=== PATIENT | female | born 1990 | race Caucasian/White ===

== ENCOUNTER → 2017-11-22 16:26 | Outpatient (CLI) | payer OTHER, MEDICAID, SELFPAY ==
[2017-11-22 17:40] LABS: Add Manual Diff / Slide Review NO; Basophils Percent Auto 0.9 % (0-2); Eosinophils Percent Auto 0.7 % (2-4); Hematocrit 40.9 % (36-46); Hemoglobin 14.1 g/dL (12.0-16.0); Lymphocytes Percent Auto 31.5 % (25-40); Mean Corpuscular HGB Conc 34.5 % (30-36); Mean Corpuscular Hemoglobin 31.1 PG (26-34); Mean Corpuscular Volume 90.2 fL (80-100); Monocytes Percent Auto 5.7 % (3-14); Neutrophils Absolute Auto 3200 /uL (3000-5900); Neutrophils Percent Auto 61.2 % (50-75); Platelet Count 277 X10^3/uL (150-400); Red Blood Cell Count 4.53 X10^6/uL (4.0-5.2); Red Cell Distribution Width 12.8 % (11.6-14.8); White Blood Cell Count 5.2 X10^3/uL (4.5-11.0)
[2017-11-22 18:26] LABS: Vitamin D 25 Hydroxy (D3) 36.9 ng/mL (30.0-100.0)
[2017-11-22 18:36] LABS: TSH w/ Reflex to FT4 1.39 uIU/mL (0.47-4.68)
[2017-11-22 18:52] LABS: Vitamin B12 995 pg/mL (239-931)
== END ==
PROVIDERS: Family Provider Family Medicine; PCP Family Medicine; Visit Provider Family Medicine
DX: R53.82 Chronic fatigue, unspecified (principal)
CPT/HCPCS: 36415; 82306; 82607; 84443; 85025

== ENCOUNTER 2021-07-05 02:43 | Emergency (ER) | payer OTHER, MEDICAID, SELFPAY ==
[2021-07-05 02:53] VITALS: BP 130/84; PULSE 98; RESP 19; TEMP 37.2; O2SAT 97; BMI 29.5
--- NOTE | 2021-07-05 02:59 | DI.RAD.S_ITS ---
PROCEDURE: XR CHEST 1V INDICATIONS: COVID POS, short of breath TECHNIQUE: One view of the chest was acquired. COMPARISON: None. FINDINGS: Surgical changes and devices: None. Lungs and pleura: Generalized bilateral interstitial infiltrate can be seen. No pleural effusions or pneumothorax. Mediastinum: Mediastinal contours appear normal. Heart size is normal. Bones and chest wall: No suspicious bony lesions. Overlying soft tissues appear unremarkable. IMPRESSION: Patchy bilateral interstitial infiltrates are seen, which are consistent with the known clinical history of COVID pneumonia. Note: No significant discrepancy from the preliminary report. Dictated by: Ted Parks M.D. on 07/05/2021 at 7:44 Approved by: Ted Parks M.D. on 07/05/2021 at 7:44
--- NOTE | 2021-07-05 03:24 | ED_ITS ---
HPI - URI/Sore Throat General Chief Complaint: Upper Respiratory Symptoms Stated Complaint: covid+/sob/cough/body aches x8 days Time Seen by Provider: 07/05/21 03:17 Source: patient Mode of arrival: Ambulatory History of Present Illness HPI Narrative: 31 year old Female with history of ADHD who presents with known COVID. She was diagnosed about 8 days ago she is vaccinated x2. She continues to have cough shortness of breath and body aches. She has many friends in the medical profession who recommended that she come get a chest x-ray. At today she felt like she could not breathe. At currently speaking without any difficulty and O2 of 97%. Related Data Previous Rx's Medication Instructions Recorded valacyclovir 500 mg tablet 500 mg PO BID #30 tab 07/10/18 dextroamphetamine-amphetamine 5 mg 5 mg PO DAILY #30 tab 08/11/20 tablet dextroamphetamine-amphetamine 5 mg 5 mg PO DAILY #30 tab 08/11/20 tablet dextroamphetamine-amphetamine 5 mg 5 mg PO DAILY #30 tab 08/11/20 tablet dextroamphetamine-amphetamine ER 1 cap PO QAM #30 cap 08/11/20 20 mg 24hr capsule,extend release dextroamphetamine-amphetamine ER 1 cap PO QAM #30 cap 08/11/20 20 mg 24hr capsule,extend release dextroamphetamine-amphetamine ER 20 mg PO QDAY #30 cap 08/11/20 20 mg 24hr capsule,extend release Allergies Allergy/AdvReac Type Severity Reaction Status Date / Time milk [MILK] Allergy Unknown Verified 02/14/21 08:53 Review of Systems Review of Systems Narrative: GENERAL: Denies chills, fatigue, malaise, fever, sweats, travel HEENT: Denies sinus pain, ear pain, sore throat, difficulty swallowing, neck pain RESPIRATORY: See HPI CARDIOVASCULAR: Denies chest pain, palpitations, orthopnea, edema GASTROINTESTINAL: Denies nausea, vomiting, abdominal pain, diarrhea, constipation, melena. : Denies dysuria, frequency, incontinence, hematuria, urinary retention, flank pain. MUSCULOSKELETAL: Denies weakness, joint pain, or bony pain SKIN: No rash, no erythema, no pruritus NEUROLOGIC: Denies weakness, dizziness, headache, numbness, change in speech, confusion PSYCHIATRIC: No concerning psychosocial issues. 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 seatbelt use: always helmet use: Yes water heater temp set < 120 deg: Yes working smoke detector in home: Yes fire extinguisher in home: Yes carbon monox detector in home: No firearms in home: Yes firearms unloaded and locked: Yes Smoking Status: Never smoker alcohol intake: current substance use type: does not use during the past year weight has: increased > 10 lbs well-balanced diet: daily or most days daily servings fruits/ve-4 caffeine: Yes (A lot of caffeine) eating out: 1-3 times/week Type(s) of exercise: other frequency: 3-4 times per week Smoking Status: Never smoker Alcohol type: wine Substance Use Type: does not use Exam Initial Vital Signs Initial Vital Signs: Vital Signs Temperature 98.9 F 07/05/21 02:53 Pulse Rate 98 H 07/05/21 02:53 Respiratory Rate 19 07/05/21 02:53 Blood Pressure 130/84 07/05/21 02:53 Pulse Oximetry 97 07/05/21 02:53 GENERAL: Alert this 31-year-old female appears to not feel well in no acute distress. HEENT: Head atraumatic,EOMI, pupils reactive, face symmetric, moist mucous membranes CARDIOVASCULAR: Regular rate and rhythm without murmurs, rubs or gallops. RESPIRATORY: Breath sounds equal bilaterally, no wheezes rales or rhonchi. EXTREMITIES: Normal range of motion, no clubbing or edema. Neurovascularly intact NEUROLOGICAL: Alert and oriented x4. SKIN: Warm, dry, no laceration, no petechiae, no rashes or lesions. Course Orders Ordered: ED Orders 07/05/21 02:59 XR chest 1V Stat 07/05/21 03:07 COVID19 -Nasal swab/Pre-Proc Stat Vital Signs Vital signs: Vital Signs - 8 hr 07/05/21 02:53 Temperature 98.9 F Pulse Rate 98 H Respiratory Rate 19 Blood Pressure 130/84 Pulse Oximetry 97 MDM - URI/Sore Throat Lab Data Labs: Lab Results 07/05/21 Range/Units 03:07 SARS-CoV-2 (PCR) Positive H (Negative) Imaging Data Chest x-ray: Radiologist's Impression: Hazy bilateral opacities compatible with pneumonia MDM Narrative Medical decision making narrative: Patient is not hypoxic she is speaking in full sentences she is vaccinated x2. Discussion with her of home management including home oxygen monitoring in when to return to ED Discharge Plan Departure Patient Disposition: Home Clinical Impression: COVID-19 Instructions: DI for COVID-19 (Suspected or Confirmed ) Activity Restrictions/Additional Instructions: *You have been diagnosed with COVID-19 *What to do: At this time please continue to monitor at home. He may continue to get worse before you get better. Monitor oxygen, if oxygen is below 91% please return to the emergency department. Stay hydrated.. *Continue to take medications as directed Tylenol 1000 mg every 6 hours if needed for [id number] pain Motrin 800 mg every 8 hours if needed for [id number] *Follow up with your primary care provider in 2-3 days or call [phone] *Return to ER if you should have increasing shortness of breath, oxygen less than 91% for more than 1 hour, worsening or concerning symptoms Prescriptions: No Action dextroamphetamine-amphetamine 20 mg capsule,extended release 24hr 20 mg PO QDAY Qty: 30 0RF dextroamphetamine-amphetamine 20 mg capsule,extended release 24hr 1 cap PO QAM Qty: 30 0RF dextroamphetamine-amphetamine 20 mg capsule,extended release 24hr 1 cap PO QAM Qty: 30 0RF dextroamphetamine-amphetamine 5 mg tablet 5 mg PO DAILY Qty: 30 0RF dextroamphetamine-amphetamine 5 mg tablet 5 mg PO DAILY Qty: 30 0RF dextroamphetamine-amphetamine 5 mg tablet 5 mg PO DAILY Qty: 30 0RF valacyclovir 500 mg tablet 500 mg PO BID Qty: 30 2RF Referrals: Negin Napier MD [Primary Care Provider] -
[2021-07-05 03:31] LABS: COVID19 -Nasal RAPID POSITIVE (Negative)
== END 2021-07-05 03:47 | disposition home or self-care (01) ==
PROVIDERS: Emergency Provider Emergency Medicine; Family Provider Family Medicine; PCP Family Medicine
DX: U07.1 COVID-19 (principal)
CPT/HCPCS: 71045; 87635; 99281; 99283; C9803

== ENCOUNTER → 2022-01-27 10:24 | Outpatient (CLI) | payer OTHER, MEDICAID, SELFPAY ==
[2022-01-27 13:26] LABS: TSH w/ Reflex to FT4 1.81 uIU/mL (0.47-4.68)
[2022-01-27 13:45] LABS: Vitamin B12 467 pg/mL (239-931)
== END ==
PROVIDERS: Family Provider Family Medicine; PCP Family Medicine; Referring Provider Family Medicine; Visit Provider Family Medicine
DX: R53.83 Other fatigue (principal); R63.5 Abnormal weight gain
CPT/HCPCS: 36415; 82306; 82607; 84443

== ENCOUNTER → 2022-10-10 09:29 | Outpatient (CLI) | payer OTHER, MEDICAID, SELFPAY | PROVIDERS: Family Provider Family Medicine; PCP Family Medicine; Visit Provider Family Medicine | DX: J02.9 Acute pharyngitis, unspecified (principal) | CPT/HCPCS: 87070; 87880 ==

== ENCOUNTER → 2023-04-18 11:38 | Outpatient (CLI) | payer OTHER, MEDICAID, SELFPAY ==
--- NOTE | 2023-04-18 11:42 | DI.RAD.S_ITS ---
PROCEDURE: XR HAND RT MIN 3V INDICATIONS: bilateral finger pain TECHNIQUE: 3 views of the hand(s) acquired. COMPARISON: None. FINDINGS: Bones: No fractures or dislocations. Tiny corticated ossific density at the radial base of the 3rd proximal phalanx likely represents an accessory ossicle or sequela of remote trauma. Carpal bones are normally aligned. Joint spaces are maintained. No suspicious bony lesions. Soft tissues: No suspicious soft tissue calcifications. IMPRESSION: 1. No acute bony abnormality. 2. Joint spaces are maintained. Dictated by: Esau Marshall M.D. on 04/18/2023 at 13:40 Approved by: Esau Marshall M.D. on 04/18/2023 at 13:41
--- NOTE | 2023-04-18 11:42 | DI.RAD.S_ITS ---
PROCEDURE: XR HAND LT MIN 3V INDICATIONS: bilateral finger pain TECHNIQUE: 3 views of the hand(s) acquired. COMPARISON: None. FINDINGS: Bones: No fractures or dislocations. Tiny corticated ossific density at the radial base of the 3rd proximal phalanx likely represents an accessory ossicle or sequela of remote trauma. Carpal bones are normally aligned. Joint spaces are maintained. No suspicious bony lesions. Soft tissues: No suspicious soft tissue calcifications. IMPRESSION: 1. No acute bony abnormality. 2. Joint spaces are maintained. Dictated by: Esau Marshall M.D. on 04/18/2023 at 13:42 Approved by: Esau Marshall M.D. on 04/18/2023 at 13:42
== END ==
PROVIDERS: Family Provider Family Medicine; PCP Family Medicine; Referring Provider Family Medicine; Visit Provider Family Medicine
DX: M79.645 Pain in left finger(s) (principal); M79.644 Pain in right finger(s)
CPT/HCPCS: 73130

== ENCOUNTER 2023-10-30 06:27 | Emergency (ER) | payer OTHER, MEDICAID, SELFPAY ==
[2023-10-30 06:36] VITALS: BP 136/74; PULSE 88; RESP 18; TEMP 36.4; O2SAT 98; BMI 56.9
--- NOTE | 2023-10-30 06:46 | ED_ITS ---
HPI - SOB/Dyspnea <Luz Valdez DO - Last Filed: 10/30/23 22:32> General Chief Complaint: Shortness of Breath/Dyspnea Stated Complaint: trouble breathing Time Seen by Provider: 10/30/23 06:40 Source: patient Mode of arrival: Ambulatory History of Present Illness HPI Narrative: Patient is a healthy 33-year-old female who presents today with cough and sore throat. She reports that kids have been sick home. She feels like she is phlegm in the back of her throat. No significant shortness of breath fever or chills. But she wants to make sure she does not have pneumonia. Denies all other symptoms. Reports that her throat was hurting but now it feels a better Related Data Previous Rx's Medication Instructions Recorded dextroamphetamine-amphetamine 5 mg 5 mg PO DAILY #30 tabs 08/11/20 tablet dextroamphetamine-amphetamine 5 mg 5 mg PO DAILY #30 tabs 02/19/22 tablet valacyclovir 500 mg tablet 500 mg PO BID #30 tabs 07/28/22 fluconazole 150 mg tablet 150 mg PO DAILY #1 tab 10/10/22 (Diflucan) dextroamphetamine-amphetamine 5 mg 5 mg PO BID #60 tabs 05/17/23 tablet benzonatate 200 mg capsule 200 mg PO BID-TID PRN cough #30 10/30/23 caps Allergies Allergy/AdvReac Type Severity Reaction Status Date / Time milk [MILK] Allergy Unknown Verified 10/30/23 16:23 Review of Systems <Cris Maxwell MD - Last Filed: 10/30/23 07:24> Review of Systems Narrative: see HPI Patient History <Luz Valdez DO - Last Filed: 10/30/23 22:32> Medical History ADHD (attention deficit hyperactivity disorder) Anemia (~2015) Surgical History Anesthesia History of breast augmentation (2013) History of egg donation (2014) History of egg donation (2015) Social History number of children: 1 household members: children pets and animals: Yes education level: college other: 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 seatbelt use: always helmet use: Yes water heater temp set < 120 deg: Yes working smoke detector in home: Yes fire extinguisher in home: Yes carbon monox detector in home: No firearms in home: Yes firearms unloaded and locked: Yes Smoking Status: Never smoker alcohol intake: current substance use type: does not use during the past year weight has: increased > 10 lbs well-balanced diet: daily or most days daily servings fruits/ve-4 caffeine: Yes (A lot of caffeine) eating out: 1-3 times/week Type(s) of exercise: other frequency: 3-4 times per week Smoking Status: Never smoker alcohol intake frequency: holidays/special occasions only Alcohol type: wine Substance Use Type: does not use Exam <Luz Valdez DO - Last Filed: 10/30/23 22:32> Initial Vital Signs Initial Vital Signs: Vital Signs Temperature 97.6 F 10/30/23 06:36 Pulse Rate 88 10/30/23 06:36 Respiratory Rate 18 10/30/23 06:36 Blood Pressure 136/74 10/30/23 06:36 Pulse Oximetry 98 10/30/23 06:36 Oxygen Delivery Method Room Air 10/30/23 06:36 GENERAL: Well-appearing 33-year-old female HEENT: Head atraumatic,EOMI, pupils reactive, face symmetric, [moist] mucous membranes CARDIOVASCULAR: Regular rate and rhythm without murmurs, rubs or gallops. RESPIRATORY: Breath sounds equal bilaterally, no wheezes rales or rhonchi. ABDOMEN: Soft, nontender. Normoactive bowel sounds all 4 quadrants. No guarding or rebound. EXTREMITIES: Normal range of motion, no clubbing or edema. Neurovascularly intact NEUROLOGICAL: Alert and oriented x4.Normal gait and speech. Cranial nerves II through XII grossly intact. SKIN: Warm, dry, no laceration, no petechiae, no rashes or lesions. <Cris Maxwell MD - Last Filed: 10/30/23 07:24> Initial Vital Signs Initial Vital Signs: Vital Signs Temperature 97.6 F 10/30/23 06:36 Pulse Rate 88 10/30/23 06:36 Respiratory Rate 18 10/30/23 06:36 Blood Pressure 136/74 10/30/23 06:36 Pulse Oximetry 98 10/30/23 06:36 Oxygen Delivery Method Room Air 10/30/23 06:36 Course <Luz Valdez DO - Last Filed: 10/30/23 22:32> Orders Ordered: ED Orders 10/30/23 06:47 Chest [XR chest 2V] Stat Vital Signs Vital signs: Vital Signs - 8 hr 10/30/23 06:36 Temperature 97.6 F Pulse Rate 88 Respiratory Rate 18 Blood Pressure 136/74 Pulse Oximetry 98 Oxygen Delivery Method Room Air <Cris Maxwell MD - Last Filed: 10/30/23 07:24> Orders Ordered: ED Orders 10/30/23 06:47 Chest [XR chest 2V] Stat Vital Signs Vital signs: Vital Signs - 8 hr 10/30/23 06:36 Temperature 97.6 F Pulse Rate 88 Respiratory Rate 18 Blood Pressure 136/74 Pulse Oximetry 98 Oxygen Delivery Method Room Air MDM - SOB/Dyspnea <Luz Valdez DO - Last Filed: 10/30/23 22:32> [facility] Narrative Medical decision making narrative: Patient 33-year-old female well-appearing presents today with upper respiratory like symptoms. She is concern for pneumonia. She has no respiratory distress vitals are stable. X-ray is ordered and signed out to Dr. Maxwell. Several days of upper respiratory symptoms. Lungs are clear to auscultation bilaterally, afebrile, saturating well on room air, chest x-ray negative for any concerning findings. Patient counseled on negative chest x-ray, recommended supportive measures including [id number] cough and cold medications and Mucinex. Tamara Brown sent to pharmacy of choice. <Cris Maxwell MD - Last Filed: 10/30/23 07:24> Differential Diagnosis Differential diagnosis: Likely community acquired pneumonia, asthma with exacerbation and other (viral syndrome) [facility] Narrative Medical decision making narrative: Several days of upper respiratory symptoms. Lungs are clear to auscultation bilaterally, afebrile, saturating well on room air, chest x-ray negative for any concerning findings. Patient counseled on negative chest x-ray, recommended supportive measures including [id number] cough and cold medications and Mucinex. Tessalon Perles sent to pharmacy of choice. Discharge Plan Departure Patient Disposition: Home Clinical Impression: Upper respiratory infection Instructions: DI for Viral Upper Respiratory Infection -- Adult Activity Restrictions/Additional Instructions: Your chest x-ray was negative for any signs of pneumonia and your lungs are clear when I listen to them. Use [id number] cough and cold medications along with the prescribed medications for your cough. You may take decongestants such as Mucinex to help loosen secretions. Prescriptions: New benzonatate 200 mg capsule 200 mg PO BID-TID PRN (Reason: cough) Qty: 30 0RF No Action fluconazole [Diflucan] 150 mg tablet 150 mg PO DAILY Qty: 1 0RF dextroamphetamine-amphetamine 5 mg tablet 5 mg PO DAILY Qty: 30 0RF valacyclovir 500 mg tablet 500 mg PO BID Qty: 30 2RF dextroamphetamine-amphetamine 5 mg tablet 5 mg PO BID Qty: 60 0RF dextroamphetamine-amphetamine 5 mg tablet 5 mg PO DAILY Qty: 30 0RF Referrals: Negin Napier MD [Primary Care Provider] - Stand Alone Forms: Patient Portal/API
--- NOTE | 2023-10-30 06:47 | DI.RAD.S_ITS ---
PROCEDURE: XR CHEST 2V INDICATIONS: cough TECHNIQUE: 2 views of the chest were acquired. COMPARISON: [facility], CR, XR CHEST 1V, 07/05/2021, 3:04. FINDINGS: Surgical changes and devices: None. Lungs and pleura: Lungs are clear. No pleural effusions or pneumothorax. Mediastinum: Mediastinal contours are normal. Heart size is normal. Bones and chest wall: No suspicious bony abnormalities. Soft tissues appear unremarkable. IMPRESSION: No acute cardiopulmonary abnormality is seen. Dictated by: Leighann Mak M.D. on 10/30/2023 at 7:53 Approved by: Leighann Mak M.D. on 10/30/2023 at 7:54
--- NOTE | 2023-10-30 06:56 | PC.NURSE ---
Pt ambulatory to Xray. No signs of respiratory distress.
== END 2023-10-30 07:27 | disposition home or self-care (01) ==
PROVIDERS: Emergency Provider Emergency Medicine; Family Provider Family Medicine; PCP Family Medicine
DX: J06.9 Acute upper respiratory infection, unspecified (principal); R05.9 Cough, unspecified; J02.9 Acute pharyngitis, unspecified
CPT/HCPCS: 71046; 87070; 99283

== ENCOUNTER → 2023-10-30 16:36 | Outpatient (CLI) | payer OTHER, MEDICAID, SELFPAY | PROVIDERS: Family Provider Family Medicine; PCP Family Medicine; Visit Provider Physician Assistant Surgical | DX: J02.9 Acute pharyngitis, unspecified (principal) | CPT/HCPCS: 87070 ==

== ENCOUNTER → 2024-07-08 12:21 | Outpatient (CLI) | payer OTHER, SELFPAY ==
[2024-07-08 14:02] LABS: Influenza A - CEPHEID Flu A NEGATIVE (NEGATIVE); Influenza B - CEPHEID Flu B NEGATIVE (NEGATIVE); Respiratory Syncytial Virus Negative (Negative)
[2024-07-08 14:15] LABS: COVID-19 CEPHEID 4-PLEX PCR Negative (Negative)
== END ==
PROVIDERS: Family Provider Family Medicine; PCP Family Medicine; Visit Provider Physician Assistant Surgical
DX: R49.0 Dysphonia (principal)
CPT/HCPCS: 87635; 87400 ×2; 87420; 0241U; 87070